=== PATIENT | male | born 1960 | race Caucasian/White ===

== ENCOUNTER 2016-08-23 14:05 | Inpatient (IN) | payer BC ==
[~2016-08-23] VITALS: Ht 182.9 cm; Wt 120.2 kg
--- NOTE | ~2016-08-23 | EKG ---
[address] [employer] [place] [address] ELECTROCARDIOGRAM REPORT Name: BEST OWENS Room #: 316-P ADM IN M.R.#: [id number] Admission: 08/23/16 Attend Phys: Ember Danielson Discharge: Date of : 56 Report #: [id number] THIS REPORT FOR: //name// [facility] ED Test Date: 2016-08-23 Test Time: 15:09:19 Pat Name: BEST OWENS Department: Room: [facility] Gender: M [employer] Liquid: MZOOK : 1960 Requested By: Franck Chua Order Number: [id number] MD: Pete Ruffin Measurements Intervals [place] Rate: 80 P: 13 MD: 229 QRS: 2 QRSD: 88 T: 24 QT: 410 QTc: 473 Interpretive Statements Sinus rhythm Prolonged MD interval No previous ECG available for comparison Electronically Signed On 08-24-2016 8:43:05 CDT by Ptee Ruffin [email or web address] <ELECTRONICALLY SIGNED> By: Pete Ruffin MD, [facility] 08/24/16 [id number] Pete Ruffin MD, FACC /EPI
[~2016-08-23 14:05] MED LIST: CENTRUM SILVER1 EACH PO; PERCOCET 5-3251 EACH PO
[2016-08-23 14:06] VITALS: BP 160/93
[2016-08-23 14:55] LABS: ABSOLUTE NEUTROPHILS 9.3 thou/uL (1.4-8.2); BASOPHILS 0.6 % (0.0-2.0); EOSINOPHILS 0.2 % (0.0-3.0); HEMATOCRIT 43.3 % (42.0-52.0); LYMPHOCYTES 12.9 % (24.0-44.0); MCH 30.9 pg (26.0-34.0); MCHC 34.6 g/dL (28.0-37.0); MCV 89.4 fL (80.0-100.0); MONOCYTES 3.1 % (1.0-8.0); PLATELET COUNT 216 thou/uL (150-400); POLYS 83.2 % (36.0-66.0); RBC 4.85 mil/uL (4.50-6.00); RDW 12.9 % (10.5-14.5); WBC 11.2 thou/uL (4.0-11.0)
[2016-08-23 14:59] LABS: MANUAL DIFF NO
[2016-08-23 15:13] LABS: ANION GAP 18 mmol/L (7-16); BUN 35 mg/dL (7-18); CALCIUM 9.4 mg/dL (8.5-10.1); CHLORIDE 95 mmol/L (98-107); CO2 17 mmol/L (21-32); CREATININE 1.5 mg/dL (0.7-1.3); GLUCOSE 473 mg/dL (74-106); SODIUM 130 mmol/L (136-145)
[2016-08-23 15:17] LABS: URINE BLOOD NEGATIVE (Negative); URINE COLOR YELLOW; URINE GLUCOSE-RANDOM* 3+ (Negative); URINE KETONES 3+ (Negative); URINE NITRITE NEGATIVE (Negative); URINE PROTEIN (DIPSTICK) NEGATIVE (Negative); URINE UROBILINOGEN 0.2 E.U./dl (0.2-1.0)
[2016-08-23 15:20] LABS: ALKALINE PHOSPHATASE 104 U/L (46-116); DIRECT BILIRUBIN 0.2 mg/dL (<0.1-0.3); SGOT 55 U/L (15-37); SGPT 95 U/L (30-65); TOTAL BILIRUBIN 0.8 mg/dL (<0.1-1.0); TOTAL PROTEIN 7.6 g/dL (6.4-8.2); TROPONIN-I < 0.04 ng/mL (<0.04-0.07)
[2016-08-23 15:22] LABS: URINE BILIRUBIN NEGATIVE (Negative)
[2016-08-23 18:03] VITALS: BP 135/74
[2016-08-23 18:12] LABS: CHOLESTEROL 194 mg/dL (<200); HDL CHOLESTEROL 32 mg/dL (>40); LDL CHOLESTEROL 84 mg/dL (<100); TC:HDL 6.1 Ratio (Not establshd); TRIGLYCERIDE 392 mg/dL (<150); VLDL 78 mg/dL (<40)
[2016-08-23 19:02] VITALS: BP 157/83
[2016-08-24 04:20] VITALS: BP 144/77
[2016-08-24 05:15] LABS: ALBUMIN 3.4 g/dL (3.4-5.0); CALCIUM 8.2 mg/dL (8.5-10.1); CREATININE 1.1 mg/dL (0.7-1.3); POTASSIUM 4.1 mmol/L (3.5-5.1); TOTAL BILIRUBIN 0.8 mg/dL (<0.1-1.0); TOTAL PROTEIN 6.6 g/dL (6.4-8.2)
[2016-08-24] MEDS ORDERED: GLYBURIDE 5 MG T5 M1 PO (08:47)
[2016-08-24] MEDS ORDERED: METFORMIN HCL500 MG PO (08:48)
[2016-08-24] MEDS ORDERED: PRINIVIL5 MG PO (08:48)
[2016-08-24 08:59] VITALS: BP 132/72
[2016-08-24 13:22] VITALS: BP 132/72
[2016-08-25 05:12] LABS: GLYCOHEMOGLOBIN (HGB A1C) 12.8 % (4.8-5.6)
== END 2016-08-24 16:54 | disposition home or self-care (01) | DRG 637 ==
LOC: ER 14:05 → EROBS 16:06 → 3N 16:06
PROVIDERS: Hospitalist; Nurse Practitioner
DX: E11.65 Type 2 diabetes mellitus with hyperglycemia (principal); N17.0 Acute kidney failure with tubular necrosis; E87.2 Acidosis; E86.0 Dehydration; I10 Essential (primary) hypertension; Z87.442 Personal history of urinary calculi; Z79.899 Other long term (current) drug therapy
CPT/HCPCS: 10094